=== PATIENT | female | born 1990 | race Caucasian/White ===

== ENCOUNTER 2024-07-30 23:45 | Emergency (ER) | payer SELFPAY ==
[2024-07-30 23:47] VITALS: BMI 36.2
--- NOTE | 2024-07-30 23:51 | PC.NURSE ---
INGA SALGADO WITH PT NOW
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
[2024-07-31 01:11] VITALS: BP 101/71; PULSE 73; RESP 16; TEMP 36.8; O2SAT 95
[2024-07-31] MEDS: KETOROLAC INJ 60 MG/2 ML VIAL 30 MG IM (01:14)
[2024-07-31] MEDS: HYDROcodone/APAP 5/325 TABLET 1 TAB PO (01:14)
[2024-07-31 01:21] VITALS: RESP 18
== END 2024-07-31 01:21 | disposition home or self-care (01) ==
LOC: SERX 07-31 01:45
PROVIDERS: Emergency Provider Emergency Medicine
DX: S13.4XXA Sprain of ligaments of cervical spine, initial encounter (principal); V43.52XA Car driver injured in collision with other type car in traffic accident, initial encounter
CPT/HCPCS: 96372; 99283; J1885; A9270